=== PATIENT | male | born 1965 | race Caucasian/White ===

== ENCOUNTER 2017-01-15 09:45 | Emergency (ER) | payer BC ==
--- NOTE | 2017-01-15 10:42 | EDM.PDOC ---
ED HPI GENERAL MEDICAL PROBLEM - General Chief Complaint: Syncope Stated Complaint: [facility] Time Seen by Provider: 01/15/17 10:26 Source of Information: Reports: Patient, Family History Limitations: Reports: No Limitations - History of Present Illness INITIAL COMMENTS - FREE TEXT/NARRATIVE: 51-year-old male presents to the ED after a syncopal event occurred this morning. States he was sitting in the recliner and when he got up he felt very dizzy and decided to sit back down in the recliner for a few more minutes. He had to get up to go and get one of his medications and therefore he did get up and walk to the kitchen. Once again he felt very dim vision and like he might pass out. He therefore sat down on one of the kitchen chairs. The next thing he knows his is helping him up from the floor. Patient fell to the floor from the chair and suffered multiple lacerations to his face shoulder area. His estimates that he was unresponsive for about 15-20 seconds. He feels pretty well back to normal at this time. 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 Gradual deterioration in cardiac function recently with ejection fraction as low as 12% resulted in placement of a left ventricular assist device on December 29 at [facility]. And has just gotten home 3 days ago. He is chronically anticoagulated with Coumadin with an INR range to be between 2.5 and 3.5. Was checked on Monday and apparently was 2.9. At present he feels back to normal when he is lying still. Blood pressure is 82/62. Heart rate is 84. He does have a defibrillator left upper anterior chest implanted several years ago. Recovering from reduce recent open thoracotomy for placement of the left ventricle reassessment device. Feels he did not hurt anything else other than a slight bruise to his right wrist area when he fell. Onset: Today Onset Date: 01/15/17 Onset Time: 08:30 Duration: Minutes: Location: Reports: Head, Face Quality: Reports: Burning, Other (Superficial lacerations to his face are not all that bothersome or painful.) Severity: Mild Improves with: Reports: None Worsens with: Reports: Other (Condition worsens with standing I lightheaded and dizzy.) Context: Reports: Activity (Adjusted up) Associated Symptoms: Reports: Syncope, Weakness. 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: Other (see below) - Related Data Allergies Allergy/AdvReac Type Severity Reaction Status Date / Time No Known Allergies Allergy Verified 01/15/17 10:07 Home Meds: Home Meds Folic Acid 1 mg PO DAILY 08/11/14 [History] predniSONE [Prednisone] 5 mg PO DAILY 08/11/14 [History] sulfaSALAzine 1,000 mg PO BID 08/11/14 [History] Amiodarone [Cordarone] 200 mg PO DAILY 06/07/16 [History] Carvedilol 3.125 mg PO BID 06/07/16 [History] Methotrexate Sodium/PF [Methotrexate 50 mg/2 ml Vial] 0.5 ml PO ASDIRECTED 06/07 [History] Aspirin [Ecotrin] 325 mg PO DAILY 01/15/17 [History] Iron,Carbonyl/Ascorbic Acid [Vitron-C Tablet] 1 tab PO DAILY 01/15/17 [History] Multivitamin [Multi-Day Vitamins] 1 tab PO DAILY 01/15/17 [History] Pantoprazole Sodium [Protonix] 40 mg PO DAILY 01/15/17 [History] Torsemide [Demadex] 20 mg PO DAILY 01/15/17 [History] Warfarin [Coumadin] 1 dose PO ASDIRECTED 01/15/17 [History] Past Medical History Cardiovascular History: Reports: Cardiomyopathy Other Cardiovascular History: 15-20% functioning heart Genitourinary History: Reports: Chronic Renal Insuffiency Musculoskeletal History: Reports: RA (Is on prednisone low dose and methotrexate for this.) - Past Surgical History Cardiovascular Surgical History: Reports: AICD, Other (See Below) Other Cardiovascular Surgeries/Procedures: LVAD Social & Family History - Tobacco Use Smoking Status *Q: Former Smoker Years of Tobacco use: 21 Packs/Tins Daily: 0.8 Used Tobacco, but Quit: Yes Month Tobacco Last Used: jan Second Hand Smoke Exposure: No - Caffeine Use Caffeine Use: Reports: None - Alcohol Use Days Per Week of Alcohol Use: 0 - Recreational Drug Use Recreational Drug Use: No - Living Situation & Occupation Living situation: Reports: , with Spouse, with Family Occupation: Employed ED ROS GENERAL - Review of Systems Review Of Systems: See Below Constitutional: Reports: Malaise, Weakness, Fatigue, Decreased Appetite, Weight Loss. Denies: Fever, Chills HEENT: Reports: No Symptoms Respiratory: Reports: Shortness of Breath. Denies: Wheezing, Pleuritic Chest Pain, Cough, Sputum Cardiovascular: Reports: Chest Pain, Blood Pressure Problem (Recovering from open heart surgery. Has a midline sternotomy incision.), Dyspnea on Exertion, Edema, Lightheadedness (Mild both lower extremities), Syncope. Denies: Claudication, Orthopnea, Palpitations, PND Endocrine: Reports: Fatigue (See history of present illness recovering from open heart surgery and placement a left ventricular assist device.) GI/Abdominal: Reports: No Symptoms : Reports: No Symptoms Musculoskeletal: Reports: Other (Chest pain from recent open heart surgical procedure December 29) Skin: Reports: No Symptoms Neurological: Reports: Dizziness, Syncope. Denies: Headache, Numbness, Tingling Psychiatric: Reports: No Symptoms Hematologic/Lymphatic: Reports: No Symptoms Immunologic: Reports: No Symptoms - Physical Exam Exam: See Below Exam Limited By: No Limitations General Appearance: Alert, WD/WN, Other Eye Exam: Bilateral Eye: Normal Inspection Throat/Mouth: Normal Inspection, Normal Lips, Normal Teeth, Normal Oropharynx Head Exam: Atraumatic, Normocephalic Neck: Normal Inspection, Supple, Non-Tender, Full Range of Motion, Other (No jugular venous pulsation.). No: Lymphadenopathy (L), Lymphadenopathy (R) Respiratory/Chest: No Respiratory Distress, No Accessory Muscle Use, Rales (Few rales right lung base.), Other (Midline sternotomy incision is healing well. Abdominal wall incision appears to be healing well as well. There is a defibrillator) GI/Abdominal: Normal Bowel Sounds, Soft, Non-Tender, No Organomegaly (Surgical wound upper abdomen healing satisfactorily.), No Distention, Other Neuro Exam (Abbreviated): Alert, Oriented, CN II-XII Intact, Normal Cognition, Normal Gait (Walks quite slowly.) Back Exam: Normal Inspection, Full Range of Motion Extremities: Normal Inspection, Normal Range of Motion, Non-Tender, Normal Capillary Refill Psychiatric: Normal Affect, Normal Mood Skin Exam: Warm, Dry, Intact, Normal Color, No Rash Course - Vital Signs Last Recorded V/S: Last Vital Signs Temp 36.3 C 01/15/17 09:56 Pulse 82 01/15/17 12:50 Resp 12 01/15/17 12:50 BP 78/54 L 01/15/17 12:50 Pulse Ox 98 01/15/17 12:50 Orthostatic Blood Pressure [ 82/69 Standing] Orthostatic Blood Pressure [ 85/67 Sitting] Orthostatic Blood Pressure [ 85/65 Supine] - Orders/Labs/Meds Labs: Laboratory Tests 01/15/17 01/15/17 01/15/17 Range/Units 10:45 10:45 10:45 WBC 9.30 H (4.23-9.07) K/mm3 RBC 3.33 L (4.63-6.08) M/mm3 Hgb 10.8 L (13.7-17.5) gm/L Hct 33.2 L (40.1-51.0) % MCV 99.7 H (79.0-92.2) fl MCH 32.4 H (25.7-32.2) pg MCHC 32.5 (32.2-35.5) g/dl RDW Std Deviation 53.4 H (35.1-43.9) fL Plt Count 412 H (163-337) K/mm3 MPV 9.5 (9.4-12.3) fl Neutrophils % (Manual) 75 H (40-60) % Band Neutrophils % 1 (0-10) % Lymphocytes % (Manual) 14 L (20-40) % Atypical Lymphs % 0 % Monocytes % (Manual) 6 (2-10) % Eosinophils % (Manual) 4 (0.8-7.0) % Basophils % (Manual) 0 L (0.2-1.2) Platelet Estimate Adequate Poikilocytosis 1+ slight Anisocytosis 1+ slight RBC Morph Comment Not Reportable PT 26.0 H (8.0-13.0) SECONDS INR 2.26 Sodium 136 (136-145) mEq/L Potassium 3.9 (3.5-5.1) mEq/L Chloride 98 (98-107) mEq/L Carbon Dioxide 35 H (21-32) mEq/L Anion Gap 6.9 (5-15) BUN 25 H (7-18) mg/dL Creatinine 1.7 H (0.7-1.3) mg/dL Est Cr Clr Drug Dosing 53.48 mL/min Estimated GFR (MDRD) 43 (>60) mL/min BUN/Creatinine Ratio 14.7 (14-18) Glucose 123 H (74-106) mg/dL Calcium 9.4 (8.5-10.1) mg/dL Total Bilirubin 1.0 (0.2-1.0) mg/dL AST 40 H (15-37) U/L ALT 41 (16-63) U/L Alkaline Phosphatase 126 H (46-116) U/L Qem-A-Tqiqpuamqnw Pept 1981 H (0-125) pg/mL Total Protein 8.0 (6.4-8.2) g/dl Albumin 3.5 (3.4-5.0) g/dl Globulin 4.5 gm/dL Albumin/Globulin Ratio 0.8 L (1-2) Meds: Medications Discontinued Medications Generic Name Dose Route Start Last Admin Trade Name Freq PRN Reason Stop Dose Admin Sodium Chloride 1,000 mls @ 150 mls/hr 01/15/17 10:45 01/15/17 10:57 Normal Saline IV 150 mls/hr ASDIRECTED VICKY Administration - Radiology Interpretation Free Text/Narrative:: 51-year-old male with known severe viral cardiomyopathy for many years underwent recent left ventricular assist device placement on December 29 in [facility]. He just got back home 3 days ago. This morning he was sitting in his easy chair and was getting up to go and get another medication when he started to feel quite dizzy lightheaded and sat back down in the chair for a few more minutes. He got up the second time admitted as far as the kitchen before his vision becoming quite DM and he felt like he might pass out. He sat down on a kitchen chair. Unfortunately he did suffer a syncopal event and ended up on the floor. This resulted in multiple superficial facial lacerations particular his chin and left temporal scalp. reports she was right there and witnessed the fall and states he fell quite slowly. She estimates she was unresponsive for 10-15 seconds. When he regained consciousness he could speak normally. There was no seizure activity. His medications of course of been recently changed due to left ventricular assist device. He reports yesterday he did not take as much fluids as normal and may have fallen a bit behind on his fluid status. BP on arrival was 76/60. Plan routine labs to see if he is still anemic. Assess fluid status. I will start a peripheral IV and give him 150 mils of normal saline see if we can bolus his blood pressure a bit. He has superficial lacerations to his face none that require suture repair. His tetanus toxoid is up-to-date about 2 years ago. He appears to have not suffered any other injuries. - Re-Assessments/Exams Free Text/Narrative Re-Assessment/Exam: 01/15/17 12:16 evaluation in the emergency room today after a syncopal event occurred at home this morning. This occurred because blood pressure is running very low on average 72-75. Told investigations carried out revealed an improvement in heart function in terms that BNP is down to 1981. It was over 3000 when you were in [facility]. Unfortunately the INR today is a little lower than we would like to see at 2.26. Therefore they suggest increasing your Coumadin to 4 mg once daily for the next 3 days and have a PT/INR rechecked on Monday, January 18. They suggest placing your carvedilol 3.125 mg dose on hold tonight and see how you feel tomorrow. If you're still feeling dizzy you are to give them a call before taking further doses of this medication ,and they will likely stop this medication at least temporarily to allow your blood pressure to come up a bit. This of course is in an effort to prevent a significant fall with injury to head or hip. All other medications are to be continued as before Departure - Departure Time of Disposition: 12:21 Disposition: Home, Self-Care 01 Condition: Fair Clinical Impression: Syncope due to orthostatic hypotension, Left ventricular assist device present , Subtherapeutic anticoagulation Hypotension Qualifiers: Hypotension type: other hypotension type Qualified Code(s): I95.89 - Other hypotension - Discharge Information Instructions: Hypotension, [id number], Syncope, [id number] Referrals: Velma Hawkins DO [Primary Care Provider] - Forms: ED Department Discharge Additional Instructions: Evaluation in the emergency room today in regards to syncopal event that occurred this morning at home resulting in a fall to the floor and multiple superficial lacerations to the face CT of the head was performed to make sure that there was no intracranial bleeding as you're on Coumadin and none was found. CT of the head is also the lacerations are fairly superficial and nothing required suture repair. Daily cleanse the wounds with soap and water and apply topical antibiotic such as bacitracin or Polysporin until they are healed. The reason for the syncopal event is due to low blood pressure. Normal blood pressure when on a left ventricular assist device is often between 70 and 95. Your blood pressure typically on the top number is been running between 72 and 77 in the ED. There is no improvement in your BNP as it was over 3300 when you were in [facility] it's down to 1981 crowding and kidney function are maintained. PTT today is 2.26 and should be higher usually between 2.5 and 3.5. Therefore recommendation is to increase her Coumadin to 4 mg daily until Monday, January 18 when it should be repeated. Suggestion of the clinic is also to twice sure carbuterol 3.125 mg tablet on hold tonight and see how you feel tomorrow morning. If you are feeling better and blood pressure is improved and you could take her dose. If you're still feeling dizzy or lightheaded or blood pressure remains in the low 70s you are to call them before taking any further doses of this medication. They may discontinue it for a short period of time. All other medications are to remain the same.
[2017-01-15] MEDS ORDERED: Sodium Chloride 0.9% 1,000 ML IV SCH (10:45)
--- NOTE | 2017-01-15 11:55 | CT ---
Head CT Technique: Multiple axial sections through the brain were obtained. Intravenous contrast was not utilized. Comparison: No previous intracranial imaging. Findings: Ventricles along with basal cisterns and sulci over the convexities are mildly prominent. No abnormal parenchymal densities are seen. No evidence of intracranial hemorrhage. No midline shift or mass effect is seen. Bone window settings were reviewed which shows no acute calvarial abnormality. Visualized sinuses shows nothing acute. Impression: 1. Minimal senescent change. 2. No acute intracranial abnormality is identified on noncontrast head CT exam. Diagnostic code #2
[2017-01-15 12:53] VITALS: BP 78/54
--- NOTE | 2017-01-15 17:29 | CR ---
Chest: Frontal view of the chest was obtained. Comparison: Previous chest x-ray of 07/23/16. Heart is enlarged. Left ventricular assist device is seen as an interval change from prior exam. AICD is noted. Previous sternotomy is noted. Lungs are clear. Bony structures are grossly intact. Impression: 1. Left ventricular assist device is seen as an interval change from prior study. Stable AICD noted. 2. Cardiomegaly. 3. Nothing acute is otherwise seen on portable chest x-ray. Diagnostic code #3
== END 2017-01-15 12:55 | disposition home or self-care (01) ==
LOC: JD.ED 09:45 → SUPCPDRO 09:45 → JD.ED 12:55
DX: I95.1 Orthostatic hypotension (principal); R79.1 Abnormal coagulation profile; I42.9 Cardiomyopathy, unspecified; N18.9 Chronic kidney disease, unspecified; Z95.811 Presence of heart assist device; Z79.899 Other long term (current) drug therapy; Z79.01 Long term (current) use of anticoagulants; Z79.82 Long term (current) use of aspirin; Z87.891 Personal history of nicotine dependence
CPT/HCPCS: 36415; 70450; 71010; 80053; 83880; 85025; 85610; 96360; 99285; J7040; 99284

== ENCOUNTER 2017-05-06 10:40 | Emergency (ER) | payer BC ==
--- NOTE | 2017-05-06 11:18 | EDM.PDOC ---
ED HPI GENERAL MEDICAL PROBLEM - General Chief Complaint: Head Injury Stated Complaint: FELL YESTERDAY/HEAD INJURY Time Seen by Provider: 05/06/17 10:51 Source of Information: Reports: Patient, RN Notes Reviewed History Limitations: Reports: No Limitations - History of Present Illness INITIAL COMMENTS - FREE TEXT/NARRATIVE: 51 year old male presents to the ED for evaluation after a fall last evening around 2 or 3 am. He was walking to the bathroom and felt dizzy and lightheaded. He started to lower himself to the floor but says he "blacked out" before sitting down. This caused him to fall. He estimates his LOC was a few seconds. He is unsure what he hit his head on. He has swelling and abrasion to the left forehead. He denies headache, vision changes, weakness in extremities, confusion, loss of balance. He has an Lvad and often feels lightheaded. He knows to sit down and rest when he feels this way. He is on coumadin. He had an INR checked yesterday, which was 3.7. He called his LVAD team at [facility] and they decreased his coumadin x1 dose yesterday. He took 4mg instead of his usual 5mg. He also had a hemoglobin yesterday and says it was 13. He denies fever, chest pain, shortness of breath, cough, nausea, vomiting, diarrhea, abdominal pain. No recent illness. He denies neck pain or back pain. He has left elbow pain. He is unable to fully extend his elbow. He has pain to the medial and lateral aspect of the elbow. No numbness or tingling. No shoulder, humerus, forearm, wrist or hand pain. Left Elbow Pain Score (Numeric/FACES): 7 - Related Data Allergies Allergy/AdvReac Type Severity Reaction Status Date / Time No Known Allergies Allergy Verified 05/06/17 10:54 Home Meds: Home Meds Folic Acid 1 mg PO DAILY 08/11/14 [History] predniSONE [Prednisone] 5 mg PO DAILY 08/11/14 [History] sulfaSALAzine 1,000 mg PO BID 08/11/14 [History] Amiodarone [Cordarone] 200 mg PO DAILY 06/07/16 [History] Carvedilol 3.125 mg PO BID 06/07/16 [History] Methotrexate Sodium/PF [Methotrexate 50 mg/2 ml Vial] 0.05 ml PO WEEKLY [History] Aspirin [Ecotrin] 325 mg PO DAILY 01/15/17 [History] Iron,Carbonyl/Ascorbic Acid [Vitron-C Tablet] 1 tab PO DAILY 01/15/17 [History] Multivitamin [Multi-Day Vitamins] 1 tab PO DAILY 01/15/17 [History] Pantoprazole Sodium [Protonix] 40 mg PO DAILY 01/15/17 [History] Torsemide [Demadex] 20 mg PO DAILY 01/15/17 [History] Warfarin [Coumadin] 1 dose PO ASDIRECTED 01/15/17 [History] Past Medical History Cardiovascular History: Reports: Cardiomyopathy Other Cardiovascular History: 15-20% functioning heart Genitourinary History: Reports: Chronic Renal Insuffiency Musculoskeletal History: Reports: RA - Past Surgical History Cardiovascular Surgical History: Reports: AICD, Other (See Below) Other Cardiovascular Surgeries/Procedures: LVAD Social & Family History - Tobacco Use Smoking Status *Q: Never Smoker Years of Tobacco use: 21 Packs/Tins Daily: 0.8 Used Tobacco, but Quit: Yes Month Tobacco Last Used: jan Second Hand Smoke Exposure: No - Caffeine Use Caffeine Use: Reports: None - Alcohol Use Days Per Week of Alcohol Use: 0 - Recreational Drug Use Recreational Drug Use: No - Living Situation & Occupation Living situation: Reports: , with Spouse, with Family Occupation: Employed ED ROS GENERAL - Review of Systems Review Of Systems: See Below Constitutional: Reports: No Symptoms. Denies: Fever, Chills, Diaphoresis HEENT: Reports: No Symptoms. Denies: Ear Pain, Vertigo, Vision Change Respiratory: Reports: No Symptoms. Denies: Cough Cardiovascular: Reports: Lightheadedness, Syncope. Denies: Chest Pain GI/Abdominal: Reports: No Symptoms. Denies: Abdominal Pain, Nausea, Vomiting Musculoskeletal: Reports: Arm Pain (left elbow ), Joint Pain (left elbow). Denies: Neck Pain, Shoulder Pain, Back Pain, Hand Pain, Joint Swelling Skin: Reports: Wound (abrasion forehead) Neurological: Reports: Syncope. Denies: Confusion, Dizziness, Headache, Numbness, Seizure, Tingling, Trouble Speaking, Difficulty Walking, Weakness ED EXAM, HEAD INJURY - Physical Exam Exam: See Below Exam Limited By: No Limitations General Appearance: Alert, WD/WN, No Apparent Distress Head: Normocephalic, Scalp Hematoma (left forehead ), Facial Abrasions ( superficial ). No: Scalp Lacerations, Scalp Swelling, Scalp Abrasions, Scalp Ecchymosis, Osorio's Sign, Facial Ecchymosis, Facial Lacerations, Facial Tenderness, Raccoon Eyes Nexus Criteria: No: Posterior, Midline Cervical Tenderness, Evidence of Intoxication, Altered Level of Consciousness, Focal Neurological Deficit, Painful Distraction Injuries Eyes: Bilateral Eye: EOMI, Normal Inspection, PERRL Ears: Normal External Exam, Normal TMs Throat/Mouth: Normal Inspection, Normal Oropharynx Neck: Non-Tender, Full Range of Motion, Normal Alignment, Normal Inspection. No : Painful Range of Motion, Paraspinous Muscle Tender, Spinous Processes Tender, Tender Midline Respiratory: No Respiratory Distress, Lungs Clear, No Accessory Muscle Use, Chest Non-Tender, Other (difficult to auscultate left lungs due to lvad. ) Cardiovascular: Normal Peripheral Pulses, Regular Rate, Rhythm, No Murmur GI/Abdominal Exam: Normal Bowel Sounds, Soft, Non-Tender, No Distention Back Exam: Normal Inspection, Full Range of Motion. No: Paraspinal Tenderness, Vertebral Tenderness Extremities: Other (Left elbow is tender to palpation. No effusion. Unable to fully flex or extend the elbow. No obvious deformity. No pain, deformity, swelling to left shoulder, humerus, forearm, wrist or hand. Neurovascular status intact. ) Neurologic: No Motor/Sensory Deficits, Alert, Normal Mood/Affect Course - Vital Signs Last Recorded V/S: Last Vital Signs Temp 97.3 F 05/06/17 10:51 Pulse Resp 18 05/06/17 10:51 BP Pulse Ox - Orders/Labs/Meds Orders: Active Orders 24 hr Category Date Time Status Elbow Min 3V Lt [CR] Stat Exams 05/06/17 11:17 Taken Head wo Cont [CT] Stat Exams 05/06/17 11:17 Taken Labs: Laboratory Tests 05/06/17 05/06/17 Range/Units 11:45 11:45 WBC 7.63 (4.23-9.07) K/mm3 RBC 4.20 L (4.63-6.08) M/mm3 Hgb 13.1 L (13.7-17.5) gm/L Hct 40.2 (40.1-51.0) % MCV 95.7 H (79.0-92.2) fl MCH 31.2 (25.7-32.2) pg MCHC 32.6 (32.2-35.5) g/dl RDW Std Deviation 48.3 H (35.1-43.9) fL Plt Count 182 (163-337) K/mm3 MPV 10.7 (9.4-12.3) fl PT 55.9 H* (8.0-13.0) SECONDS INR 4.65 - Re-Assessments/Exams Free Text/Narrative Re-Assessment/Exam: 05/06/17 12:39 CBC reveals Hgb of 13.1. This is stable from yesterday. INR is 4.65. It was 3.7 yesterday according to the patient. Discussed with Dr. Abbasi who recommends we hold coumadin today, then 1/2 dose tomorrow, then recheck Monday. Left elbow x-ray is negative for bony abnormality. Radiologist interpretation pending. CT head read by [facility], no acute intracranial abnormality. Patient will be discharged home. Educated on return precautions. Discharge instructions as documented. Departure - Departure Time of Disposition: 12:40 Disposition: Home, Self-Care 01 Condition: Good Clinical Impression: Elevated INR Syncope Qualifiers: Encounter type: initial encounter Head injury Qualifiers: Encounter type: initial encounter Qualified Code(s): S09.90XA - Unspecified injury of head, initial encounter - Discharge Information Referrals: Velma Hawkins DO [Primary Care Provider] - Forms: ED Department Discharge Additional Instructions: Hold coumadin today, take 1/2 of your regular dose tomorrow, then recheck INR Monday and call your Lvad team on Monday. Return to ER with new or worsening symptoms. Minor Head Injury We have found no evidence to indicate that your head injury was serious. However , new symptoms and unexpected complications can develop hours or even days after the injury. The 24 hours are the most crucial and you should remain with a reliable green building materials designer at least during this period If any of the following signs develop, call your doctor or come back to the ED: Drowsiness or increasing difficulty in awakening patient Nausea and vomiting Convulsions or fits Bleeding or watery drainage from the nose or ear Severe headaches Weakness or loss of feeling in the arms or legs Worsening or loss of balance Confusion or strange behavior One pupil (black part of eye) much larger than the other: peculiar movement of the eyes, double vision, or other visual disturbances A very slow or very rapid pulse, or unusual breathing pattern You may eat or drink as usual if you desire. However, you should not drink alcoholic beverages. Do not take any sedatives or any pain relieves stronger than Tylenol ( acetaminophen) at least for the first 24 hours. Do not use aspirin containing medicines or anti-inflammatories such as advil, motrin, ibuprofen, aleve, naproxyn. . - My Orders Last 24 Hours: My Active Orders 05/06/17 11:17 Elbow Min 3V Lt [CR] Stat Head wo Cont [CT] Stat - Assessment/Plan Last 24 Hours: My Active Orders 05/06/17 11:17 Elbow Min 3V Lt [CR] Stat Head wo Cont [CT] Stat
--- NOTE | 2017-05-08 07:59 | CR ---
Left elbow: Four views of the left elbow were obtained. Comparison: No prior elbow study. Joint effusion is identified. Joint spaces are preserved. No acute fracture or other bony abnormality is identified. Impression: 1. Joint effusion. No acute bony abnormality is appreciated. If patient continues to be symptomatic, recommend repeat study in 10-14 days to further evaluate. Diagnostic code #3
--- NOTE | 2017-05-08 10:15 | CT ---
Head CT Technique: Multiple axial sections through the brain were obtained. Intravenous contrast was not utilized. Comparison: Prior head CT exam of 01/15/17. Findings: Ventricles along with basal cisterns and sulci over the convexities are mildly prominent. No abnormal parenchymal densities are seen. No evidence of intracranial hemorrhage. No midline shift or mass effect is seen. Soft tissue hematoma seen within the left frontal scalp. Bone window settings were reviewed which show the visualized sinuses to appear clear. No acute calvarial abnormality is identified. Impression: 1. Soft tissue hematoma within the left frontal scalp. 2. Mild generalized atrophy is seen which is stable from prior head CT. 3. No acute intracranial abnormality is appreciated. Diagnostic code #2 I agree with preliminary report issued by [facility] ([facility] report finalized on 05/06/17, 12:47 PM Central Time)
== END 2017-05-06 12:47 | disposition home or self-care (01) ==
LOC: JD.ED 10:40
DX: R55 Syncope and collapse (principal); S06.0X1A Concussion with loss of consciousness of 30 minutes or less, initial encounter; S00.03XA Contusion of scalp, initial encounter; S00.81XA Abrasion of other part of head, initial encounter; N18.9 Chronic kidney disease, unspecified; Z79.899 Other long term (current) drug therapy; Z79.01 Long term (current) use of anticoagulants; Z79.82 Long term (current) use of aspirin; W01.10XA Fall on same level from slipping, tripping and stumbling with subsequent striking against unspecified object, initial encounter
CPT/HCPCS: 36415; 70450; 70450-26; 73080-26-LT; 73080-LT; 85027; 85610; 99283; 99284-25

== ENCOUNTER 2018-11-06 10:21 | Emergency (ER) | payer BC ==
[2018-11-06 10:42] VITALS: BP 115/93
--- NOTE | 2018-11-06 11:19 | EDM.PDOC ---
ED HPI GENERAL MEDICAL PROBLEM - General Chief Complaint: Laceration Stated Complaint: NOSE LAC Time Seen by Provider: 11/06/18 10:33 Source of Information: Reports: Patient History Limitations: Reports: No Limitations - History of Present Illness INITIAL COMMENTS - FREE TEXT/NARRATIVE: 53-year-old male presents to emergency room chief complaints of upper nose laceration. He reports last evening that he bring into a door frame striking his nose. Patient does admit to taking aspirin and Coumadin. He reports that he' s had intermittent bleeding last evening and today he started bleeding again. He denies any neck or back pain denies any headache. Onset Date: 11/05/18 Onset Time: 02:10 Duration: Getting Worse, Intermittent Location: Reports: Face Worsens with: Reports: None Associated Symptoms: Reports: Shortness of Breath. Denies: Confusion, Cough, Fever/Chills, Nausea/Vomiting, Weakness - Related Data Allergies Allergy/AdvReac Type Severity Reaction Status Date / Time No Known Allergies Allergy Verified 11/06/18 10:28 Home Meds: Home Meds Folic Acid 1 mg PO DAILY 08/11/14 [History] sulfaSALAzine 1,000 mg PO BID 08/11/14 [History] Amiodarone [Cordarone] 200 mg PO DAILY 06/07/16 [History] Carvedilol 6.25 mg PO BID 06/07/16 [History] Methotrexate Sodium/PF [Methotrexate 50 mg/2 ml Vial] 0.04 ml PO WEEKLY [History] Aspirin [Ecotrin] 325 mg PO DAILY 01/15/17 [History] Iron,Carbonyl/Ascorbic Acid [Vitron-C Tablet] 1 tab PO DAILY 01/15/17 [History] Multivitamin [Multi-Day Vitamins] 1 tab PO DAILY 01/15/17 [History] Pantoprazole Sodium [Protonix] 40 mg PO DAILY 01/15/17 [History] Torsemide [Demadex] 20 mg PO DAILY 01/15/17 [History] Warfarin [Coumadin] 1 dose PO ASDIRECTED 01/15/17 [History] Past Medical History Cardiovascular History: Reports: Cardiomyopathy, Other (See Below) Other Cardiovascular History: 15-20% functioning heart, viral illness causing heart damage. Genitourinary History: Reports: Chronic Renal Insuffiency Musculoskeletal History: Reports: RA - Infectious Disease History Infectious Disease History: Reports: Chicken Pox, Measles - Past Surgical History Cardiovascular Surgical History: Reports: AICD, Other (See Below) Other Cardiovascular Surgeries/Procedures: LVAD Social & Family History - Tobacco Use Smoking Status *Q: Former Smoker Years of Tobacco use: 25 Packs/Tins Daily: 0.5 Used Tobacco, but Quit: No Month/Year Tobacco Last Used: November 2016 - Caffeine Use Caffeine Use: Reports: None - Recreational Drug Use Recreational Drug Use: No - Living Situation & Occupation Living situation: Reports: , with Spouse, with Family Occupation: Employed ED ROS GENERAL - Review of Systems Review Of Systems: See Below Constitutional: Denies: Fever, Chills HEENT: Reports: Other (upper nose laceration/abrasion) Respiratory: Denies: Shortness of Breath Cardiovascular: Denies: Chest Pain Endocrine: Denies: Fatigue GI/Abdominal: Reports: No Symptoms : Reports: No Symptoms Musculoskeletal: Denies: Neck Pain Skin: Reports: Other (upper nasal bridge superficial laceratioin) Neurological: Denies: Confusion, Dizziness, Headache, Change in Speech Psychiatric: Reports: No Symptoms Hematologic/Lymphatic: Reports: No Symptoms Immunologic: Reports: No Symptoms ED EXAM, SKIN/RASH Exam: See Below Exam Limited By: No Limitations General Appearance: Alert, WD/WN, No Apparent Distress Eye Exam: Bilateral Eye: EOMI, PERRL Nose: Normal Inspection, Normal Mucosa, Other (nasal bridge superficial laceration with skin avulsion noted, no erythema or swelling noted, moderate bleeding from site. ). No: Nasal Drainage, Clear Rhinorrhea Head: Atraumatic, Normocephalic Neck: Normal Inspection, Supple, Non-Tender, Full Range of Motion Neurological: Alert, Oriented, CN II-XII Intact, Normal Cognition, Normal Gait Psychiatric: Normal Affect, Normal Mood Skin: Warm, Dry, Intact, Normal Color, No Rash Course - Vital Signs Last Recorded V/S: Last Vital Signs Temp 98.6 F 11/06/18 10:25 Pulse 76 11/06/18 10:25 Resp 16 11/06/18 10:25 BP 115/93 H 11/06/18 10:25 Pulse Ox 98 11/06/18 10:25 - Re-Assessments/Exams Free Text/Narrative Re-Assessment/Exam: 11/06/18 11:44 53-year-old male presents to emergency room chief complaints of nasal bridge laceration and bleeding. Patient does take Coumadin for a Lvac. He applied pressure last evening and the bleeding stopped this morning he irritated the area and it started to bleed again. I did apply quick clot to and [place] pressure and hemostasis obtained. I will discharge home with instructions to get dressing wet and remove it in the am. Instructed patient to follow-up with his PCP. Instructed patient to return to emergency room for any new or acute symptoms. Patient verbalized understanding this plan for discharge. Departure - Departure Time of Disposition: 11:48 Disposition: Home, Self-Care 01 Condition: Good Clinical Impression: Nasal laceration Qualifiers: Encounter type: initial encounter Qualified Code(s): S01.21XA - Laceration without foreign body of nose, initial encounter Avulsion of skin of face Qualifiers: Encounter type: initial encounter Qualified Code(s): S01.80XA - Unspecified open wound of other part of head, initial encounter - Discharge Information Instructions: Facial Laceration, Wound Care, Adult, Stitches, [place], or Adhesive Wound Closure Referrals: Onesimo Arceo MD [Primary Care Provider] - Additional Instructions: You have been diagnosis with nasal superficial laceration and abrasion. In the morning get the dressing wet and remove it. Follow up PCP. Return to ER for any new or acute worsening symptoms.
== END 2018-11-06 11:55 | disposition home or self-care (01) ==
LOC: JD.ED 10:21
DX: S01.21XA Laceration without foreign body of nose, initial encounter (principal); Z87.891 Personal history of nicotine dependence; N18.9 Chronic kidney disease, unspecified; Z79.82 Long term (current) use of aspirin; Z79.899 Other long term (current) drug therapy; W22.8XXA Striking against or struck by other objects, initial encounter
CPT/HCPCS: 99282

== ENCOUNTER 2018-11-12 13:18 | Emergency (ER) | payer BC ==
[2018-11-12 13:36] VITALS: BP 95/80
--- NOTE | 2018-11-12 14:21 | EDM.PDOC ---
ED HPI GENERAL MEDICAL PROBLEM - General Chief Complaint: Skin Complaint Stated Complaint: POSS INFECTION TO A OPEN WOUND Time Seen by Provider: 11/12/18 13:47 Source of Information: Reports: Patient History Limitations: Reports: No Limitations - Related Data Allergies Allergy/AdvReac Type Severity Reaction Status Date / Time No Known Allergies Allergy Verified 11/12/18 13:34 Home Meds: Home Meds Folic Acid 1 mg PO DAILY 08/11/14 [History] sulfaSALAzine 1,000 mg PO BID 08/11/14 [History] Amiodarone [Cordarone] 200 mg PO DAILY 06/07/16 [History] Carvedilol 6.25 mg PO BID 06/07/16 [History] Methotrexate Sodium/PF [Methotrexate 50 mg/2 ml Vial] 0.04 ml PO WEEKLY [History] Aspirin [Ecotrin] 325 mg PO DAILY 01/15/17 [History] Iron,Carbonyl/Ascorbic Acid [Vitron-C Tablet] 1 tab PO DAILY 01/15/17 [History] Multivitamin [Multi-Day Vitamins] 1 tab PO DAILY 01/15/17 [History] Pantoprazole Sodium [Protonix] 40 mg PO DAILY 01/15/17 [History] Torsemide [Demadex] 20 mg PO DAILY 01/15/17 [History] Warfarin [Coumadin] 1 dose PO ASDIRECTED 01/15/17 [History] Doxycycline [Vibramycin] 100 mg PO BID #20 cap 11/12/18 [Rx] Past Medical History Cardiovascular History: Reports: Cardiomyopathy, Other (See Below) Other Cardiovascular History: 15-20% functioning heart, viral illness causing heart damage. Genitourinary History: Reports: Chronic Renal Insuffiency Musculoskeletal History: Reports: RA - Infectious Disease History Infectious Disease History: Reports: Chicken Pox, Measles - Past Surgical History Cardiovascular Surgical History: Reports: AICD, Other (See Below) Other Cardiovascular Surgeries/Procedures: LVAD Social & Family History - Tobacco Use Smoking Status *Q: Never Smoker - Caffeine Use Caffeine Use: Reports: None - Recreational Drug Use Recreational Drug Use: No - Living Situation & Occupation Living situation: Reports: , with Spouse, with Family Occupation: Employed ED ROS GENERAL - Review of Systems Review Of Systems: ROS reveals no pertinent complaints other than HPI. ED EXAM, SKIN/RASH Exam: See Below Exam Limited By: No Limitations General Appearance: Alert, WD/WN, No Apparent Distress Ears: Hearing Grossly Normal Nose: Normal Inspection Throat/Mouth: Normal Voice, No Airway Compromise Neck: Normal Inspection, Supple Respiratory/Chest: No Respiratory Distress, Lungs Clear, Normal Breath Sounds, No Accessory Muscle Use Cardiovascular: Normal Peripheral Pulses, Regular Rate, Rhythm Peripheral Pulses: 2+: Radial (L) GI/Abdominal: Normal Bowel Sounds, Soft, Non-Tender, No Organomegaly, No Distention, Other (LVAD port to abdomen with localized area of redness. Small pimple like lesion to the medial border of the OS. ) Course - Vital Signs Last Recorded V/S: Last Vital Signs Temp 97.4 F 11/12/18 13:32 Pulse Resp 18 11/12/18 13:32 BP 95/80 11/12/18 13:32 Pulse Ox 98 11/12/18 13:32 - Orders/Labs/Meds Meds: Medications Discontinued Medications Generic Name Dose Route Start Last Admin Trade Name Freq PRN Reason Stop Dose Admin Doxycycline Hyclate 200 mg 11/12/18 15:22 11/12/18 16:11 Vibramycin PO 11/12/18 15:23 200 mg ONETIME ONE Administration - Re-Assessments/Exams Free Text/Narrative Re-Assessment/Exam: 11/12/18 1508 Discussed patient with Felipe ESCAPEMENT MAKER with LVAD team. She has reviewed the picture sent by patient. She requested wound culture, blood cultures 2, and starting the patient on doxycycline. Return precautions were discussed with the patient. They have no further questions or concerns. Discharge instructions as documented. Departure - Departure Time of Disposition: 15:53 Disposition: Home, Self-Care 01 Condition: Good Clinical Impression: LVAD (left ventricular assist device) present Skin abscess Qualifiers: Site of cutaneous abscess: other site Qualified Code(s): L02.818 - Cutaneous abscess of other sites - Discharge Information Prescriptions: Doxycycline [Vibramycin] 100 mg PO BID #20 cap Instructions: Skin Abscess Referrals: Onesimo Arceo MD [Primary Care Provider] - Forms: ED Department Discharge Additional Instructions: As discussed take the doxycycline 1 tab twice a day for the next 10 days. Monitor for any signs of worsening infection including: Swelling, redness, drainage, fever, pain, and/or any additional complaints. If so return back to the ED for reevaluation. Blood cultures and wound cultures have been obtained. You will be notified of change in antibiotic is required. Please remain in contact with LVAD team. Continue dressing changes as normal. With taking antibiotic INR needs to be rechecked in 3 days. In addition the doxycycline can cause photosensitivity so restrict your exposure to the sun.
[2018-11-12] MEDS ORDERED: Doxycycline 100 MG Cap PO ONE (15:22)
== END 2018-11-12 16:17 | disposition home or self-care (01) ==
LOC: JD.ED 13:18
DX: L02.211 Cutaneous abscess of abdominal wall (principal); N18.9 Chronic kidney disease, unspecified; Z79.899 Other long term (current) drug therapy; Z95.5 Presence of coronary angioplasty implant and graft; Z95.811 Presence of heart assist device
CPT/HCPCS: 36415; 87040; 87075; 87076; 87181; 87205; 99283; A9270; 87070

== ENCOUNTER 2019-12-20 06:23 | Emergency (ER) | payer BC ==
[2019-12-20 06:35] VITALS: BP 108/72; PULSE 67
--- NOTE | 2019-12-20 07:18 | EDM.PDOC ---
ED HPI GENERAL MEDICAL PROBLEM - General Chief Complaint: ENT Problem Stated Complaint: NOSE BLEED Time Seen by Provider: 12/20/19 07:13 Source of Information: Reports: Patient History Limitations: Reports: No Limitations - History of Present Illness INITIAL COMMENTS - FREE TEXT/NARRATIVE: 54-year-old male presents to the ED with persistent bleeding from the left naris for greater than 30 hours. Patient is on Coumadin and keep his INR between 2.7 and 3.5 due to having a left ventricular assist device. Bleeding will clot up his nose but it is still persistently oozing. Coming out the other nares and down his throat. He has spit up some clots as well. He has had a nose compression device placed since arrival for 20 minutes. Denies any other bleeding problems. Onset: Sudden Onset Date: 12/19/19 Onset Time: 06:00 Duration: Hour(s):, Constant Location: Reports: Face (Left-sided nosebleed) Quality: Reports: Other Severity: Moderate (No pain) Improves with: Reports: Other (Nasal clamping) Worsens with: Reports: Other Context: Denies: Activity, Exercise (Blowing his nose.), Lifting, Sick Contact, Trauma, Other Associated Symptoms: Denies: No Other Symptoms, Confusion, Chest Pain, Cough, cough w sputum, Diaphoresis, Fever/Chills, Headaches, Loss of Appetite, Malaise Treatments ACETONE BUTTON PASTER: Reports: Other (see below) Other Treatments ACETONE BUTTON PASTER: affrin spray - Related Data Allergies Allergy/AdvReac Type Severity Reaction Status Date / Time No Known Allergies Allergy Verified 12/20/19 19:07 Home Meds: Home Meds Folic Acid 1 mg PO DAILY 08/11/14 [History] sulfaSALAzine 1,000 mg PO BID 08/11/14 [History] Amiodarone [Cordarone] 200 mg PO DAILY 06/07/16 [History] Methotrexate Sodium/PF [Methotrexate 50 mg/2 ml Vial] 0.04 ml PO WEEKLY 06/07/16 [History] Aspirin [Ecotrin] 325 mg PO DAILY 01/15/17 [History] Iron,Carbonyl/Ascorbic Acid [Vitron-C Tablet] 1 tab PO DAILY 01/15/17 [History] Multivitamin [Multi-Day Vitamins] 1 tab PO DAILY 01/15/17 [History] Pantoprazole Sodium [Protonix] 40 mg PO DAILY 01/15/17 [History] Torsemide [Demadex] 20 mg PO DAILY 01/15/17 [History] Warfarin [Coumadin] 1 dose PO ASDIRECTED 01/15/17 [History] Doxycycline [Vibramycin] 100 mg PO BID #20 cap 11/12/18 [Rx] Past Medical History Cardiovascular History: Reports: Cardiomyopathy, Other (See Below) Other Cardiovascular History: 15-20% functioning heart, viral illness causing heart damage. Currently has a left ventricular assist device. Genitourinary History: Reports: Chronic Renal Insuffiency Musculoskeletal History: Reports: RA - Infectious Disease History Infectious Disease History: Reports: Chicken Pox, Measles - Past Surgical History Cardiovascular Surgical History: Reports: AICD, Other (See Below) Other Cardiovascular Surgeries/Procedures: LVAD Social & Family History - Tobacco Use Smoking Status *Q: Former Smoker Used Tobacco, but Quit: Yes Month/Year Tobacco Last Used: 2016 - Caffeine Use Caffeine Use: Reports: Soda Other Caffeine Use: soda occassionally - Recreational Drug Use Recreational Drug Use: No - Living Situation & Occupation Living situation: Reports: , with Spouse, with Family Occupation: Employed ED ROS ENT - Review of Systems Review Of Systems: See Below Constitutional: Reports: Malaise, Weakness, Fatigue, Decreased Appetite. Denies: Fever, Chills HEENT: Reports: Nosebleed (Left nare since yesterday.) Respiratory: Reports: Shortness of Breath Cardiovascular: Reports: Blood Pressure Problem, Dyspnea on Exertion, Lightheadedness. Denies: Chest Pain, Claudication, Edema, Orthopnea (Is to run on the low side.) Endocrine: Reports: No Symptoms GI/Abdominal: Reports: No Symptoms : Reports: Frequency Musculoskeletal: Reports: Back Pain Skin: Reports: Pallor Neurological: Reports: No Symptoms ED EXAM, ENT - Physical Exam Exam: See Below Exam Limited By: No Limitations General Appearance: Alert, WD/WN, No Apparent Distress, Other (Temperature is 36.0 with a heart rate of 67 respiratory is 18 with O2 sats of 97% on room air BP 108/72.) Eye Exam: Bilateral Eye: Normal Inspection (Mild blepharal pallor.) Mouth/Throat: Normal Inspection, Normal Gums, Normal Teeth Head: Atraumatic, Normocephalic Neck: Normal Inspection, Supple, Non-Tender, Full Range of Motion. No: Lymphadenopathy (L), Lymphadenopathy (R) Respiratory/Chest: No Respiratory Distress, Lungs Clear, Normal Breath Sounds Cardiovascular: Other (Absence of any heart sounds due to left ventricular assist device.) Course - Vital Signs Last Recorded V/S: Last Vital Signs Temp 36.0 C L 12/20/19 06:30 Pulse 67 12/20/19 06:30 Resp 18 12/20/19 06:30 BP 108/72 12/20/19 06:30 Pulse Ox 97 12/20/19 06:30 - Radiology Interpretation Free Text/Narrative:: 54-year-old male presents to the ED with persistent left-sided nasal hemorrhage for the last 30 hours. States it will clot up but it will not stop oozing. He is on Coumadin high dosage and keep his INR between 2.7 and 3.5. He has a left ventricular assist device in place. Nosebleed on the left side primarily but has been coming out the right nares as well as down his throat. He just spit up some blood when I entered the room. Examination reveals angry looking mucosa on the right side with no ulcerations. Bleeding was from the left anterior nasal septum on the left side. No blood in the oropharynx or clots at this time. He was treated with silver nitrate application in 3 spots on the left anterior septum. Will review him and the next 10 minutes or so. - Re-Assessments/Exams Free Text/Narrative Re-Assessment/Exam: 12/20/19 07:30 on review there is been no active bleeding or recurrence of bleeding. Inspection of the left nasal septum shows good placement of the silver nitrate. He will come back if he has any further nosebleeds. He will put Polysporin ointment with the aid of a Q-tip into both sides of his nose at bedtime for the next week. He will return to the ED if he has any further nasal bleeding. Departure - Departure Time of Disposition: 07:30 Disposition: Home, Self-Care 01 Condition: Fair Clinical Impression: Anterior epistaxis, Epistaxis - Discharge Information *PRESCRIPTION DRUG MONITORING PROGRAM REVIEWED*: Not Applicable *COPY OF PRESCRIPTION DRUG MONITORING REPORT IN PATIENT ANGUS: Not Applicable Instructions: Nosebleed, [id number] Referrals: Onesimo Arceo MD [Primary Care Provider] - Forms: ED Department Discharge Additional Instructions: Evaluation in the emergency room this morning in regards to persistent bleeding from the left nose for the last day and a half. This is aggravated by being on Coumadin with your known INR of 3.2. Because of the left ventricular assist device you are maintained between 2.7 and 3.5. The Coumadin itself does not cause the nosebleed. Irritation of the nose lining bring in the blood vessels close to the surface causes bleeding. Blood vessels come closer to the surface in a way of relieving heat in the summer months and then dry out secondary to air conditioning. Today the bleeding was controlled with nasal clamp and then cauterization with silver nitrate to the left anterior nasal septum. Suggest use of Polysporin ointment to each side of the nasal septum every night at bedtime for the next week and then Monday night and Monday night for the next 2 to 3 weeks to prevent any further nosebleeds from occurring. Return to the ED if any further bleeding occurs. Sepsis Event Note (ED) - Evaluation Sepsis Screening Result: No Definite Risk
== END 2019-12-20 07:50 | disposition home or self-care (01) ==
LOC: JD.ED 06:23
DX: R04.0 Epistaxis (principal); N18.9 Chronic kidney disease, unspecified; Z87.891 Personal history of nicotine dependence; Z79.01 Long term (current) use of anticoagulants; Z79.82 Long term (current) use of aspirin; Z79.899 Other long term (current) drug therapy
CPT/HCPCS: 30901; 99283

== ENCOUNTER 2019-12-20 18:41 | Emergency (ER) | payer BC ==
[2019-12-20 19:07] VITALS: BP 98/85; PULSE 70
--- NOTE | 2019-12-20 19:26 | EDM.PDOC ---
ED HPI GENERAL MEDICAL PROBLEM - General Chief Complaint: General Stated Complaint: NOSE BLEED Time Seen by Provider: 12/20/19 19:01 Source of Information: Reports: Patient History Limitations: Reports: No Limitations - History of Present Illness INITIAL COMMENTS - FREE TEXT/NARRATIVE: This is a 54-year-old male. He was here earlier today for a left nasal passage bleed. It was cauterized at that time and he appeared to be doing okay. This evening he feels like he has a small drip and when he puts a tissue to his nose he gets some blood on it. Because of this he comes back to the ER for evaluation. He is not having any major bleed at this time. He does have a lot of old blood noted in that left nasal passage. There is no active bleeding noted. The patient has a left ventricular assist device and he is on Coumadin. His normal blood pressures are systolic in the 90s. His blood pressure is not elevated at this time. Any other acute symptoms. He did put some Vaseline in his nose earlier in hopes that it would keep the nose moist and stop any bleeding. - Related Data Allergies Allergy/AdvReac Type Severity Reaction Status Date / Time No Known Allergies Allergy Verified 12/20/19 19:07 Home Meds: Home Meds Folic Acid 1 mg PO DAILY 08/11/14 [History] sulfaSALAzine 1,000 mg PO BID 08/11/14 [History] Amiodarone [Cordarone] 200 mg PO DAILY 06/07/16 [History] Methotrexate Sodium/PF [Methotrexate 50 mg/2 ml Vial] 0.04 ml PO WEEKLY 06/07/16 [History] Aspirin [Ecotrin] 325 mg PO DAILY 01/15/17 [History] Iron,Carbonyl/Ascorbic Acid [Vitron-C Tablet] 1 tab PO DAILY 01/15/17 [History] Multivitamin [Multi-Day Vitamins] 1 tab PO DAILY 01/15/17 [History] Pantoprazole Sodium [Protonix] 40 mg PO DAILY 01/15/17 [History] Torsemide [Demadex] 20 mg PO DAILY 01/15/17 [History] Warfarin [Coumadin] 1 dose PO ASDIRECTED 01/15/17 [History] Doxycycline [Vibramycin] 100 mg PO BID #20 cap 11/12/18 [Rx] Past Medical History Cardiovascular History: Reports: Cardiomyopathy, Other (See Below) Other Cardiovascular History: 15-20% functioning heart, viral illness causing heart damage. Currently has a left ventricular assist device. Genitourinary History: Reports: Chronic Renal Insuffiency Musculoskeletal History: Reports: RA - Infectious Disease History Infectious Disease History: Reports: Chicken Pox, Measles - Past Surgical History Cardiovascular Surgical History: Reports: AICD, Other (See Below) Other Cardiovascular Surgeries/Procedures: LVAD Social & Family History - Tobacco Use Smoking Status *Q: Former Smoker Used Tobacco, but Quit: Yes Month/Year Tobacco Last Used: 12/2016 - Caffeine Use Caffeine Use: Reports: Soda Other Caffeine Use: soda occassionally - Recreational Drug Use Recreational Drug Use: No - Living Situation & Occupation Living situation: Reports: , with Spouse, with Family Occupation: Employed ED ROS GENERAL - Review of Systems Review Of Systems: See Below Constitutional: Denies: Fever, Chills HEENT: Reports: Nosebleed Respiratory: Denies: Shortness of Breath, Cough Cardiovascular: Reports: Other (Left ventricular assist device). Denies: Chest Pain Endocrine: Reports: Fatigue GI/Abdominal: Denies: Abdominal Pain, Diarrhea, Nausea, Vomiting : Reports: No Symptoms Musculoskeletal: Reports: No Symptoms Skin: Reports: No Symptoms Neurological: Reports: No Symptoms Psychiatric: Reports: No Symptoms ED EXAM, GENERAL - Physical Exam Exam: See Below Exam Limited By: No Limitations General Appearance: Alert, WD/WN, No Apparent Distress Eye Exam: Bilateral Eye: Normal Inspection Ears: Normal External Exam Nose: Other (Noted to be old blood in his left nasal passage but no active red bleeding. I can see where they cauterized it on the anterior septum and there does not appear to be any new bleeding presently. I was able to clean out most of the old blood and see into the posterior nasal passage.) Throat/Mouth: Other (Is no blood going in the posterior pharynx area that I can see presently.) Head: Normocephalic Neck: Supple Respiratory/Chest: No Respiratory Distress GI/Abdominal: Other (He denies any abdominal tenderness) Back Exam: Full Range of Motion Extremities: Normal Inspection, Normal Range of Motion Neurological: Alert, Oriented Psychiatric: Normal Affect, Normal Mood Skin Exam: Warm, Dry Course - Vital Signs Last Recorded V/S: Last Vital Signs Temp 97.9 F 12/20/19 19:04 Pulse 70 12/20/19 19:04 Resp 18 12/20/19 19:04 BP 98/85 12/20/19 19:04 Pulse Ox 96 12/20/19 19:04 - Orders/Labs/Meds Labs: Laboratory Tests 12/20/19 Range/Units 19:30 PT 32.2 H (9.7-12.0) SECONDS INR 3.15 - Re-Assessments/Exams Free Text/Narrative Re-Assessment/Exam: 12/20/19 20:49 The patient has been doing fine since he got here. There is no additional bleeding as he has been sitting here and we have been observing him. I did use a Q-tip and apply some Bactroban ointment and coated the inner side of his left nasal passage. There was no bleeding and he tolerated it well. 12/20/19 20:51 Spoke to the patient regarding his INR of 3.15 that is appropriate for his left ventricular assist device. Departure - Departure Time of Disposition: 20:50 Disposition: Home, Self-Care 01 Condition: Fair Clinical Impression: Epistaxis - Discharge Information *PRESCRIPTION DRUG MONITORING PROGRAM REVIEWED*: Not Applicable *COPY OF PRESCRIPTION DRUG MONITORING REPORT IN PATIENT ANGUS: Not Applicable Instructions: Nosebleed, [id number] Referrals: Onesimo Arceo MD [Primary Care Provider] - Forms: ED Department Discharge Additional Instructions: Do not rub or pick at your nose for the next 24 hours, in the morning very gently with a Q-tip coat the inner surface of your left nasal passage, if there is any additional marked bleeding return to the ER otherwise follow-up with your family doctor this week for reevaluation. Ankita's INR was 3.15 and appropriate. Sepsis Event Note (ED) - Evaluation Sepsis Screening Result: No Definite Risk - Focused Exam Vital Signs: Vital Signs Temp Pulse Resp BP Pulse Ox 12/20/19 19:04 97.9 F 70 18 98/85 96
== END 2019-12-20 20:55 | disposition home or self-care (01) ==
LOC: JD.ED 18:41
DX: R04.0 Epistaxis (principal); N18.9 Chronic kidney disease, unspecified; Z87.891 Personal history of nicotine dependence; Z79.82 Long term (current) use of aspirin; Z79.899 Other long term (current) drug therapy
CPT/HCPCS: 36415; 85610; 99283

== ENCOUNTER 2020-08-05 04:00 | Emergency (ER) | payer BC ==
[2020-08-05] MEDS ORDERED: Sodium Chloride 0.9% 10 ML Syringe FLUSH PRN (04:28)
--- NOTE | 2020-08-05 04:31 | EDM.PDOC ---
<Ramos Kim - Last Filed: 08/05/20 13:00> ED HPI GENERAL MEDICAL PROBLEM - General Chief Complaint: Flank Pain Stated Complaint: LEFT SIDE PAIN Time Seen by Provider: 08/05/20 04:15 - Related Data Allergies Allergy/AdvReac Type Severity Reaction Status Date / Time No Known Allergies Allergy Verified 08/05/20 04:13 Home Meds: Home Meds Folic Acid 1 mg PO DAILY 08/11/14 [History] sulfaSALAzine 1,000 mg PO BID 08/11/14 [History] Amiodarone [Cordarone] 200 mg PO DAILY 06/07/16 [History] Methotrexate Sodium/PF [Methotrexate 50 mg/2 ml Vial] 0.03 ml PO WEEKLY 06/07/16 [History] Aspirin [Ecotrin] 325 mg PO DAILY 01/15/17 [History] Multivitamin [Multi-Day Vitamins] 1 tab PO DAILY 01/15/17 [History] Pantoprazole Sodium [Protonix] 40 mg PO DAILY 01/15/17 [History] Torsemide [Demadex] 20 mg PO DAILY 01/15/17 [History] Ascorbic Acid [Vitamin C] 1,000 mg PO DAILY 08/05/20 [History] Cefdinir [Omnicef] 300 mg PO BID #16 cap 08/05/20 [Rx] Cholecalciferol (Vitamin D3) [Vitamin D3] 5,000 unit PO DAILY 08/05/20 [History] Metoprolol Succinate 25 mg PO DAILY 08/05/20 [History] Ondansetron [Zofran] 4 mg BUCCAL Q6H PRN #5 tab 08/05/20 [Rx] Warfarin [Coumadin] 4 mg PO ASDIRECTED 08/05/20 [History] Warfarin [Coumadin] 5 mg PO ASDIRECTED 08/05/20 [History] Course - Re-Assessments/Exams Free Text/Narrative Re-Assessment/Exam: 08/05/20 13:[address] Garland. The patient is still not feeling better. His IP on his LVAD was low at 1.8. It is normally at around 5.5. They wanted me to c ontact the LVAD team. I called them and they were not concerned about the IP being low. It is around 5.5 now. They said this will vary. They were also not concerned about his low BP but his MAP was above 70. The patient rested for awhile and felt better and wanted to go. He is going to take the antibiotics and we do have blood cultures pending. Departure - Departure Disposition: Home, Self-Care 01 Clinical Impression: Chills without fever, LUQ abdominal pain, Constipation by delayed colonic trans it - Discharge Information Prescriptions: Cefdinir [Omnicef] 300 mg PO BID #16 cap Ondansetron [Zofran] 4 mg BUCCAL Q6H PRN #5 tab PRN Reason: nausea or vomiting Instructions: Constipation, Adult, Abdominal Pain, Adult, [id number] Referrals: Onesimo Arceo MD [Primary Care Provider] - Forms: ED Department Discharge Additional Instructions: Evaluation in the emergency room this morning in regards to persistent left upper quadrant abdominal pain since 0200 hours this morning. No associated nausea or vomiting and pain essentially remained stable prior to coming to the ED. Due to having left ventricular assist device in place a full work-up was carried out due to reported chills. This included septic work-up including blood cultures x2. Initially you did not have a fever but at the time of discharge I felt that you were slightly warm to palpation. X-ray of the chest revealed lungs to be clear with no evidence of any pneumonia. The left ventricular assist device is in the appropriate position as it was in 2017 and the heart remains enlarged but no worse than it was in 2017. CT of the abdomen was performed to rule out a kidney stone in the left flank or upper abdomen to cause pain and none was found. There is increased stool throughout the colon particularly the right side of the colon and the transverse colon which lives across the upper abdomen. Suggest bowel cleanse with magnesium citrate or Citroma taking 6 ounces of this medication mixed with 6 ounces of juice of choice or Gatorade Powerade by mouth once. This will usually start to work in 1 to 2 hours and bowels will usually move 3 or 4 times sometimes ending in diarrhea. It usually causes very little cramping. Lab tests revealed a slightly elevated white count at 10.84 and the differential on the white count suggests an elevated neutrophil count at 80% with 2% bands cells which suggest a developing infection. At this point time the source of this infection is unclear as the urine is clear chest is clear. Recent dental manipulation a week ago could possibly related to infection developing now but should have developed a bit sooner. Suggest treatment with Omnicef 300 mg twice daily for the next 8 days to clear up infection and of the upper respiratory tree sinuses lungs urinary tract and most GI infection causes. You would need to return to the hospital if you develop persistent nausea or vomiting severe chills or rigors or temperature greater than 100.5 degrees. May still use Tylenol 650 mg every 6 hours necessary for fever relief. <GillEmmanuel Sybil - Last Filed: 08/05/20 19:10> ED HPI GENERAL MEDICAL PROBLEM - General Source of Information: Reports: Patient, Family (spouse) History Limitations: Reports: No Limitations - History of Present Illness INITIAL COMMENTS - FREE TEXT/NARRATIVE: 54-year-old male presents to the ED in the accompaniment of his . He states he woke from sleep to void about 0200 hrs. and appreciated left upper quadrant abdominal discomfort that persisted for well over an hour while he was lying in bed. He states there was perhaps some mild left flank discomfort as well. The pain never really increased in intensity but it never went away either. No associated burping or belching. Of note the patient has a left ventricular assist device in his left hemiabdomen for the last 3 years. He is maintained on Coumadin usually 4 mg 1 day alternating with 5 mg the next. They try and keep his INR between 2.5 and 3.5. He has not had any spontaneous bleeding. No history of kidney stones. States his bowels have been functioning fairly well. Did not identify any blood in his urine tonight. Initially did have some associated nausea but it seems to be somewhat better. He also reports he has some chills a couple of times this evening. Onset: Today, Sudden Onset Date: 08/05/20 Onset Time: 02:00 Duration: Hour(s):, Constant Location: Reports: Abdomen (Left upper abdominal discomfort radiating slightly towards the left flank.) Quality: Reports: Ache ( It is pretty well staying in the same place as it started at 0200 hrs.) Severity: Moderate Improves with: Reports: None Worsens with: Reports: None Context: Denies: Activity, Exercise, Lifting, Sick Contact, Trauma, Other Associated Symptoms: Reports: Malaise, Nausea/Vomiting (Neck chronic fatigue), Shortness of Breath. 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 To his knowledge is never gone off.), Cardiomyopathy, Heart Failure (Severe heart failure requiring left vent ricular assist device implanted at [facility] 3 years ago.), Other (See Below) Other Cardiovascular History: 15-20% functioning heart, viral illness causing heart damage. Currently has a left ventricular assist device. Genitourinary History: Reports: Chronic Renal Insuffiency Musculoskeletal History: Reports: Arthritis (He affecting his hands. He reports he has been on sulfasalazine for about 3 years as well.), RA - Infectious Disease History Infectious Disease History: Reports: Chicken Pox, Measles - Past Surgical History Cardiovascular Surgical History: Reports: AICD, Other (See Below) Other Cardiovascular Surgeries/Procedures: LVAD Social & Family History - Caffeine Use Caffeine Use: Reports: Soda Other Caffeine Use: soda occassionally - Living Situation & Occupation Living situation: Reports: , with Spouse, with Family Occupation: Employed ED ROS GENERAL - Review of Systems Review Of Systems: See Below Constitutional: Reports: Malaise, Weakness, Fatigue. Denies: Fever, Chills HEENT: Reports: No Symptoms Respiratory: Reports: Shortness of Breath. Denies: Wheezing, Pleuritic Chest Pain, Cough, Sputum, Hemoptysis Cardiovascular: Reports: Blood Pressure Problem (Pressure usually runs low 95- 100), Dyspnea on Exertion (Mild both lower extremities), Edema, Orthopnea. Denies: Chest Pain, Claudication, Lightheadedness (Air.) Endocrine: Reports: Fatigue GI/Abdominal: Denies: Abdominal Pain, Constipation, Hematemesis, Hematochezia, Melena : Reports: Frequency. Denies: Dysuria, Incontinence, Urgency Musculoskeletal: Reports: Neck Pain, Shoulder Pain, Joint Pain (Is and hips at times.) Skin: Reports: Bruising (As he is on Coumadin.) Neurological: Reports: No Symptoms, Difficulty Walking. Denies: Confusion, Dizziness, Headache, Numbness, Syncope, Tingling, Weakness Psychiatric: Reports: No Symptoms (Slowly.) Hematologic/Lymphatic: Reports: No Symptoms Immunologic: Reports: No Symptoms ED EXAM, GI/ABD - Physical Exam Exam: See Below Exam Limited By: No Limitations General Appearance: Alert, WD/WN, No Apparent Distress, Other (He states pain in his left upper abdomen is much better than it was but he still rates it as 7 out of 10. Temperature is 36.4 and he does not feel warm to palpation. Heart rate is 86 and sinus with a respiratory of 17 and sats of 97% on room air BP 110/90 and has come down to 97/80.) Eyes: Right: Normal Appearance (Scleral icterus or blepharal pallor. He does have a right sided lateral inferior) Throat/Mouth: Normal Inspection, Normal Lips, Normal Oropharynx Head: Atraumatic, Normocephalic, Other Neck: Normal Inspection (No outward signs of any head or facial trauma.), Suppl e, Non-Tender, Full Range of Motion. No: Lymphadenopathy (L), Lymphadenopathy (R) Respiratory/Chest: No Respiratory Distress, Lungs Clear, Normal Breath Sounds, No Accessory Muscle Use Cardiovascular: No JVD, Other (She has a left ventricular assist device which just gives a whirring sensation in his abdomen and chest. He has no heartbeat.). No: Normal Peripheral Pulses GI/Abdominal Exam: No Organomegaly, Abnormal Bowel Sounds, Other (Bowel sounds are few and far between. Ventricular assist device is in his left hemiabdomen. The whirring noise from the left ventricular assist device makes it very difficult to hear any bowel sounds.). No: Guarding, Rigid, Rebound Back Exam: Normal Inspection, Full Range of Motion. No: CVA Tenderness (L), CVA Tenderness (R) Extremities: Normal Inspection, Normal Range of Motion, Non-Tender, Pedal Edema (Pedal edema at the ankles.) Neurological: Alert, Oriented, CN II-XII Intact, Normal Cognition Psychiatric: Normal Affect, Normal Mood Skin Exam: Warm, Dry, Intact, Normal Color, No Rash Course - Vital Signs Last Recorded V/S: Last Vital Signs Temp 36.9 C 08/05/20 06:45 Pulse 86 08/05/20 07:11 Resp 16 08/05/20 07:11 BP 79/66 L 08/05/20 07:11 Pulse Ox 93 L 08/05/20 07:11 - Orders/Labs/Meds Orders: Active Orders 24 hr Category Date Time Status CULTURE BLOOD [BC] Stat Lab 08/05/20 04:49 Received CULTURE BLOOD [BC] Stat Lab 08/05/20 05:08 Received Blood Culture x2 Reflex Set [OM.PC] Stat Oth 08/05/20 04:26 Ordered Peripheral IV Insertion Adult [OM.PC] Stat Oth 08/05/20 04:28 Ordered Labs: Laboratory Tests 08/05/20 08/05/20 08/05/20 Range/Units 04:49 05:13 05:13 WBC 10.84 H (4.23-9.07) K/mm3 RBC 4.59 L (4.63-6.08) M/mm3 Hgb 15.2 (13.7-17.5) gm/dl Hct 44.9 (40.1-51.0) % MCV 97.8 H (79.0-92.2) fl MCH 33.1 H (25.7-32.2) pg MCHC 33.9 (32.2-35.5) g/dl RDW Std Deviation 49.3 H (35.1-43.9) fL Plt Count 160 L (163-337) K/mm3 MPV 12.1 (9.4-12.3) fl Neutrophils % (Manual) 81 H (40-60) % Band Neutrophils % 2 (0-10) % Lymphocytes % (Manual) 4 L (20-40) % Atypical Lymphs % 0 % Monocytes % (Manual) 12 H (2-10) % Eosinophils % (Manual) 1 (0.8-7.0) % Basophils % (Manual) 0 L (0.2-1.2) Platelet Estimate Adequate RBC Morph Comment Normal PT 28.8 H (9.7-12.0) SECONDS INR 2.75 APTT 41.6 H (21.7-31.4) SECONDS Sodium (136-145) mEq/L Potassium (3.5-5.1) mEq/L Chloride (98-107) mEq/L Carbon Dioxide (21-32) mEq/L Anion Gap (5-15) BUN (7-18) mg/dL Creatinine (0.7-1.3) mg/dL Est Cr Clr Drug Dosing mL/min Estimated GFR (MDRD) (>60) mL/min BUN/Creatinine Ratio (14-18) Glucose (74-106) mg/dL Calcium (8.5-10.1) mg/dL Magnesium (1.8-2.4) mg/dl Total Bilirubin (0.2-1.0) mg/dL AST (15-37) U/L ALT (16-63) U/L Alkaline Phosphatase (46-116) U/L C-Reactive Protein (<1.0) mg/dL NT-Pro-B Natriuret Pep 1108 H (0-125) pg/mL Total Protein (6.4-8.2) g/dl Albumin (3.4-5.0) g/dl Globulin gm/dL Albumin/Globulin Ratio (1-2) Urine Color (Yellow) Urine Appearance (Clear) Urine pH (5.0-8.0) Ur Specific [place] (1.005-1.030) Urine Protein (Negative) Urine Glucose (UA) (Negative) Urine Ketones (Negative) Urine Occult Blood (Negative) Urine Nitrite (Negative) Urine Bilirubin (Negative) Urine Urobilinogen (0.2-1.0) Ur Leukocyte Esterase (Negative) Urine RBC (0-5) /hpf Urine WBC (0-5) /hpf Ur Squamous Epith Cells (0-5) /hpf Urine Bacteria (FEW) /hpf Urine Mucus (FEW) /hpf 08/05/20 08/05/20 Range/Units 05:13 05:30 WBC (4.23-9.07) K/mm3 RBC (4.63-6.08) M/mm3 Hgb (13.7-17.5) gm/dl Hct (40.1-51.0) % MCV (79.0-92.2) fl MCH (25.7-32.2) pg MCHC (32.2-35.5) g/dl RDW Std Deviation (35.1-43.9) fL Plt Count (163-337) K/mm3 MPV (9.4-12.3) fl Neutrophils % (Manual) (40-60) % Band Neutrophils % (0-10) % Lymphocytes % (Manual) (20-40) % Atypical Lymphs % % Monocytes % (Manual) (2-10) % Eosinophils % (Manual) (0.8-7.0) % Basophils % (Manual) (0.2-1.2) Platelet Estimate RBC Morph Comment PT (9.7-12.0) SECONDS INR APTT (21.7-31.4) SECONDS Sodium 143 (136-145) mEq/L Potassium 3.6 (3.5-5.1) mEq/L Chloride 102 (98-107) mEq/L Carbon Dioxide 30 (21-32) mEq/L Anion Gap 14.6 (5-15) BUN 32 H (7-18) mg/dL Creatinine 2.1 H (0.7-1.3) mg/dL Est Cr Clr Drug Dosing 42.33 mL/min Estimated GFR (MDRD) 33 (>60) mL/min BUN/Creatinine Ratio 15.2 (14-18) Glucose 101 (74-106) mg/dL Calcium 9.0 (8.5-10.1) mg/dL Magnesium 2.1 (1.8-2.4) mg/dl Total Bilirubin 0.6 (0.2-1.0) mg/dL AST 29 (15-37) U/L ALT 29 (16-63) U/L Alkaline Phosphatase 70 (46-116) U/L C-Reactive Protein 1.6 H* (<1.0) mg/dL NT-Pro-B Natriuret Pep (0-125) pg/mL Total Protein 7.7 (6.4-8.2) g/dl Albumin 4.2 (3.4-5.0) g/dl Globulin 3.5 gm/dL Albumin/Globulin Ratio 1.2 (1-2) Urine Color Yellow (Yellow) Urine Appearance Clear (Clear) Urine pH 6.0 (5.0-8.0) Ur Specific [place] 1.020 (1.005-1.030) Urine Protein Negative (Negative) Urine Glucose (UA) Negative (Negative) Urine Ketones Negative (Negative) Urine Occult Blood 2+ H (Negative) Urine Nitrite Negative (Negative) Urine Bilirubin Negative (Negative) Urine Urobilinogen 0.2 (0.2-1.0) Ur Leukocyte Esterase Negative (Negative) Urine RBC 0-5 (0-5) /hpf Urine WBC 0-5 (0-5) /hpf Ur Squamous Epith Cells 0-5 (0-5) /hpf Urine Bacteria Rare (FEW) /hpf Urine Mucus Few (FEW) /hpf Meds: Medications Discontinued Medications Generic Name Dose Route Start Last Admin Trade Name Makayla PRN Reason Stop Dose Admin Cefdinir 300 mg 08/05/20 07:10 08/05/20 07:55 Omnicef PO 08/05/20 07:11 300 mg ONETIME ONE Administration Magnesium Citrate 180 ml 08/05/20 06:44 08/05/20 06:59 Citrate Of Magnesia PO 08/05/20 06:45 180 ml ONETIME ONE Administration Ondansetron HCl 4 mg 08/05/20 06:49 08/05/20 06:58 Zofran Odt PO 08/05/20 06:50 4 mg ONETIME ONE Administration Sodium Chloride 10 ml 08/05/20 04:28 08/05/20 04:51 Saline Flush FLUSH 10 ml ASDIRECTED PRN Administration Keep Vein Open - Radiology Interpretation Free Text/Narrative:: 54-year-old male presents to the ED with left upper abdominal pain that started around 0200 hrs. this morning after he got up to void. States it does seem to radiate slightly into the left flank area. He states he laid back in bed but could not fall asleep due to the persistent left upper quadrant abdominal discomfort. This is something new to him. He states the pain was as high as a 7 out of 10 he still rates it as a 6 out of 10 but does not want any pain medicine at this time. He states he did have some nausea upon leaving home but it is better now. Also reports having feeling chilled a couple of times this last evening. He clinically has no fever at this time. 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 Apparently he is still listed on the transplant list through [facility]. He was hoping that his heart would gradually get stronger and recover from the cardiomyopathy and apparently it has improved but it is rule out relatively slow going. He is chronically anticoagulant with Coumadin usually 4 mg 1 day alternating with 5 mg the next trying to maintain an INR of 2.5-3.5 due to left ventricular assist device. Plan he will have a chest x-ray portably. He will have CT of the abdomen pelvis done without any contrast since his kidneys apparently are not in the best of shape. Bowel function has been normal. Routine labs will be performed including a blood culture x2. - Re-Assessments/Exams Free Text/Narrative Re-Assessment/Exam: 08/05/20 05:16 White count is mildly elevated at 10.84. Differential is pending. Hemoglobin is 15.2 with hematocrit of 44.9. MCV is mildly elevated at 97.8. Platelet count is low normal at 160,000 08/05/2020: CT scan of the abdomen pelvis performed without oral or IV contrast. Left ventricular assist device to of course appreciated left upper hemiabdomen. Liver shows no mass. Gallbladder does contain several small gallstones. Pancreas is normal with no ductal dilatation. Spleen is normal with no splenomegaly. Adrenal glands are normal with no mass. Kidneys and ureters show bilateral renal cysts some of which are hyperdense the largest involves the left kidney measuring 3.1 cm. No follow-up is recommended. There is no evidence for renal or ureteral calculi. Stomach and bowel are unremarkable with no obstruction no mucosal thickening. Appendix no evidence of appendicitis. Is increased stool throughout the right hemicolon and transverse colon but with mild constipation. Intraperitoneal space is unremarkable with no free air no significant fluid collections. Vasculature is unremarkable with no abdominal aortic aneurysm. Lymph nodes unremarkable with no enlarged lymph nodes urinary bladder unremarkable as visualized. Bones and joints unremarkable with no acute fractures. Soft tissues are unremarkable. 08/05/20 05:59 PT is 28.8 with an INR of 2.75. PTT is 41.6. Sodium is 143 with a potassium of 3.6. Chloride is 102 with a bicarb of 30. Anion gap is 14.6. BUN is 32 with a creatinine of 2.1. GFR is 33 i.e. stage IIIb renal insufficiency. Glucose is 101 with a calcium 9.0 magnesium is 2.1. Liver function normal C-reactive protein 1.6 total protein 7.7 with albumin fraction of 4.2. The urinalysis shows 2+ occult blood but no signs of an infection and no red cells reported on the micro. The only thing that is pending at this point time is the differential on the white count. 08/05/20 06:17 Differential is still pending. BNP is 1108. 08/05/20 06:38 Differential on the white count reveals 81% neutrophils and 2% bands cells. This is concerning for developing infection of unclear etiology. Have some dental work done about a week ago and was on antibiotics for 1 hour prior to the procedure. I can find no other obvious source for an infection. I am going to therefore place him on Augmentin 8 7 5/125 mg twice daily for the next 8 days to clear up infection that would involve the upper respiratory tract the chest the urine etc. He does feel slightly warmer to palpation at this time. He will return if he has any significant rigors, chills nausea vomiting or temperature greater than 100.5 degrees. Blood cultures x2 were done today even in spite of not having a fever at the time. I will also send him home on Citroma to take 6 ounces by mouth this morning with 6 ounces of juice of choice to provide bowel cleanse. 08/05/20 07:00 as the patient was getting up to go home he had to go to the washroom. When he stood up to walk to the washroom he felt lightheaded dizzy and very nauseated. He broke out in a cold sweat and felt lightheaded and dizzy. BP was 79 systolic. He is unable to compensate for increased vagal tone due to the LVAC.Case discussed with Dr kim as it is change of shift and he will keep an eye on him. He therefore had to sit in the wheelchair for prolonged period of time. He never did vomit. On reexamination in the room his blood pressure was 79/60. He states this can occur sometimes when he is not feeling well his L back would not generate a high blood pressure. Normal blood pressure for him is usually 90-95. At this time nothing is as far as his treatment plan will be changed. He will be given Zofran 4 mg sublingual at this time and 15 minutes later for now can have his first dose of Augmentin 8 seven 5/125 mg per ora. He will of course return if he develops any fever, chills, rigors, nausea vomiting or temperature greater than 100.5 degrees. Departure - Departure Time of Disposition: 09:30 Condition: Fair - Discharge Information *PRESCRIPTION DRUG MONITORING PROGRAM REVIEWED*: Not Applicable *COPY OF PRESCRIPTION DRUG MONITORING REPORT IN PATIENT ANGUS: Not Applicable Sepsis Event Note (ED) - Evaluation Sepsis Screening Result: No Definite Risk - Focused Exam Vital Signs: Vital Signs Pulse Resp BP Pulse Ox 08/05/20 07:11 86 16 79/66 L 93 L - My Orders Last 24 Hours: My Active Orders 08/05/20 04:26 Blood Culture x2 Reflex Set [OM.PC] Stat 08/05/20 04:28 Peripheral IV Insertion Adult [OM.PC] Stat 08/05/20 04:49 CULTURE BLOOD [BC] Stat 08/05/20 05:08 CULTURE BLOOD [BC] Stat - Assessment/Plan Last 24 Hours: My Active Orders 08/05/20 04:26 Blood Culture x2 Reflex Set [OM.PC] Stat 08/05/20 04:28 Peripheral IV Insertion Adult [OM.PC] Stat 08/05/20 04:49 CULTURE BLOOD [BC] Stat 08/05/20 05:08 CULTURE BLOOD [BC] Stat
[2020-08-05] MEDS ORDERED: Magnesium Citrate Solution 296 ML Bottle PO ONE (06:44)
[2020-08-05] MEDS ORDERED: Ondansetron 4 MG Tab.DIS PO ONE (06:49)
[2020-08-05] MEDS ORDERED: Cefdinir 300 MG Cap PO ONE (07:10)
--- NOTE | 2020-08-05 07:10 | CR ---
Chest: Portable view of the chest was obtained. Comparison: Prior chest x-ray of 01/15/17. Heart is enlarged. Upper mediastinum is normal. Prior sternotomy is seen. AICD is noted. Prior cardiac assist device is stable in appearance from prior exam. Slight parenchymal scarring is seen within the left lung base. Lungs otherwise are clear. Bony structures are grossly intact. Impression: 1. Stable cardiomegaly with stable cardiac assist device and AICD. 2. Slight scarring within the left lung base. 3. Nothing acute is appreciated. Diagnostic code #2
[2020-08-05 07:13] VITALS: BP 79/66; PULSE 86
--- NOTE | 2020-08-05 07:26 | CT ---
CT abdomen and pelvis Technique: Multiple axial sections were obtained from above the dome of the diaphragm inferiorly through the pubic symphysis. Intravenous and oral contrast were not utilized. Reconstructed coronal and sagittal images were obtained. Comparison: No prior abdominal imaging is available. Findings: Heart assist device is partially seen. There is slight increased density within both lung bases, worse on the left side which most likely represents mild areas of scarring. Heart is enlarged. Noncontrast appearance of the liver shows no focal abnormality. Small calcified gallstones are seen within the gallbladder. Spleen appears normal. Adrenal glands show no nodule. Pancreas shows no abnormality. Small cysts are seen within both kidneys. Several cysts are slightly increased in density which are most likely due to small hemorrhagic cysts. These appear mostly exophytic from both kidneys. No hydronephrosis or abnormal calcifications are seen. No ureteral dilatation or ureteral stone is appreciated. Abdominal aorta shows no aneurysm. No retroperitoneal adenopathy or mesenteric abnormalities are seen. No pelvic adenopathy or mass is seen. Small fat-containing bilateral inguinal hernias are noted. No free fluid is seen. Small umbilical hernia is noted containing fat. Appendix is seen and normal in size. Bone window settings were reviewed which show mild scattered degenerative change within the spine. No acute osseous abnormality is appreciated. Impression: 1. Small calcified gallstones within the gallbladder. 2. Other findings as noted above which appear to be chronic. 3. Nothing acute is appreciated on noncontrast CT study of the abdomen and pelvis. Diagnostic code #2 I agree with preliminary report from [facility], finalized on 08/05/20, 6:39 AM [employer]
== END 2020-08-05 09:35 | disposition home or self-care (01) ==
LOC: JD.ED 04:00
DX: K59.01 Slow transit constipation (principal); R68.83 Chills (without fever); M19.90 Unspecified osteoarthritis, unspecified site; N18.9 Chronic kidney disease, unspecified; I50.9 Heart failure, unspecified; Z79.82 Long term (current) use of aspirin; Z79.899 Other long term (current) drug therapy
CPT/HCPCS: 36415; 71045; 74176; 80053; 81001; 83735; 83880; 85007; 85027; 85610; 85730; 86140; 87040; 99284; A9270

== ENCOUNTER 2022-05-15 13:07 | Emergency (ER) | payer BC ==
[2022-05-15 14:16] VITALS: BP 108/82; PULSE 67
[2022-05-15] MEDS ORDERED: Sodium Chloride 0.9% 10 ML Syringe FLUSH PRN (14:21)
== END 2022-05-15 16:19 | disposition home or self-care (01) ==
LOC: JD.ED 13:07
DX: R19.7 Diarrhea, unspecified (principal); N18.9 Chronic kidney disease, unspecified; Z95.810 Presence of automatic (implantable) cardiac defibrillator; Z79.82 Long term (current) use of aspirin; Z79.899 Other long term (current) drug therapy; Z79.01 Long term (current) use of anticoagulants
CPT/HCPCS: 36415; 80053; 83630; 83735; 85025; 87493; 99284

== ENCOUNTER 2024-01-28 18:47 | Emergency (ER) | payer BC ==
[2024-01-28] MEDS ORDERED: Sodium Chloride 0.9% 10 ML Syringe FLUSH PRN (19:21)
[2024-01-28 20:10] LABS: BASOPHILS ABSOLUTE AUTO 0.1 K/mm3 (0.0-0.2); BASOPHILS PERCENT AUTO 0.8 % (0.0-1.0); EOSINOPHILS PERCENT AUTO 0.5 % (0.0-6.0); HEMATOCRIT 46.5 % (42.0-52.0); HEMOGLOBIN 15.6 gm/dl (14.0-18.0); IMMATURE GRAN ABSOLUTE AUTO 0.02 K/mm3 (0.00-0.05); IMMATURE GRAN PERCENT AUTO 0.3 % (0.0-0.4); LYMPHOCYTES ABSOLUTE AUTO 0.8 K/mm3 (1.0-4.8); LYMPHOCYTES PERCENT AUTO 13.5 % (24.0-44.0); MEAN CORPUSCULAR HEMOGLOBIN 33.1 pg (28.0-32.0); MEAN CORPUSCULAR HGB CONC 33.5 g/dl (32.0-36.0); MEAN CORPUSCULAR VOLUME 98.7 fl (83.0-99.0); MEAN PLATELET VOLUME 12.3 fl (9.4-12.4); MONOCYTES ABSOLUTE AUTO 0.8 K/mm3 (0.0-0.8); MONOCYTES PERCENT AUTO 13.1 % (0.0-8.0); NEUTROPHILS ABSOLUTE AUTO 4.3 K/mm3 (1.8-7.7); NEUTROPHILS PERCENT AUTO 71.8 % (41.0-71.0); PLATELET COUNT,PLT 120 K/mm3 (150-400); RED BLOOD CELL COUNT 4.71 M/mm3 (4.52-5.90); WHITE BLOOD CELL COUNT,WBC 6.01 K/mm3 (3.9-11.3)
[2024-01-28 20:33] LABS: A/G RATIO 1.2 (1-2); ANION GAP 10.6 (5-15); BILIRUBIN TOTAL 1.4 mg/dL (0.2-1.0); BUN/CREATININE RATIO 11.7 (14-18); CALCIUM 9.3 mg/dL (8.5-10.1); CREATININE 2.3 mg/dL (0.7-1.3); EST CRCL DRUG DOSING (CG) 36.83 mL/min; POTASSIUM,K 4.6 mEq/L (3.5-5.1); PROTEIN TOTAL,TP 7.4 g/dl (6.4-8.2)
[2024-01-28 21:05] LABS: INR 2.89; PROTHROMBIN TIME 28.6 SECONDS (9.7-12.0)
[2024-01-28 21:18] VITALS: BP 99/77; PULSE 79
== END 2024-01-28 21:17 | disposition home or self-care (01) ==
LOC: JD.ED 18:47
DX: T82.897A Other specified complication of cardiac prosthetic devices, implants and grafts, initial encounter (principal); R79.89 Other specified abnormal findings of blood chemistry; R94.4 Abnormal results of kidney function studies; I50.9 Heart failure, unspecified; Z79.899 Other long term (current) drug therapy; Z79.01 Long term (current) use of anticoagulants
CPT/HCPCS: 36415; 80053; 83735; 84484; 85025; 85610; 93005; 93010; 99282; 99284

== ENCOUNTER 2024-03-11 12:56 | Emergency (ER) | payer BC ==
[2024-03-11 13:19] VITALS: PULSE 55
[2024-03-11 14:02] LABS: BASOPHILS PERCENT AUTO 0.7 % (0.0-1.0); EOSINOPHILS ABSOLUTE AUTO 0.1 K/mm3 (0.0-0.4); HEMATOCRIT 45.8 % (42.0-52.0); HEMOGLOBIN 15.6 gm/dl (14.0-18.0); IMMATURE GRAN ABSOLUTE AUTO 0.03 K/mm3 (0.00-0.05); IMMATURE GRAN PERCENT AUTO 0.5 % (0.0-0.4); LYMPHOCYTES ABSOLUTE AUTO 0.9 K/mm3 (1.0-4.8); MEAN CORPUSCULAR HEMOGLOBIN 32.5 pg (28.0-32.0); MEAN CORPUSCULAR HGB CONC 34.1 g/dl (32.0-36.0); MEAN PLATELET VOLUME 12.9 fl (9.4-12.4); MONOCYTES ABSOLUTE AUTO 0.8 K/mm3 (0.0-0.8); NEUTROPHILS PERCENT AUTO 67.8 % (41.0-71.0); PLATELET COUNT,PLT 104 K/mm3 (150-400); WHITE BLOOD CELL COUNT,WBC 5.94 K/mm3 (3.9-11.3)
[2024-03-11 14:04] LABS: MEAN CORPUSCULAR VOLUME 95.4 fl (83.0-99.0)
[2024-03-11] MEDS ORDERED: 50% Dextrose in Water 50 ML SDV IV STA (14:28)
[2024-03-11] MEDS: Albuterol 0.083% 2.5 MG/3 ML Neb Soln NEB SCH (14:30)
[2024-03-11 14:42] LABS: LACTIC ACID 1.2 mmol/L (0.4-2.0)
[2024-03-11] MEDS: Calcium Gluconate 10% 1 GM/10 ML SDV IVPUSH ONE (14:46)
[2024-03-11 14:49] LABS: A/G RATIO 1.1 (1-2); BILIRUBIN TOTAL 0.9 mg/dL (0.2-1.0); BUN/CREATININE RATIO 16.8 (14-18); CALCIUM 9.6 mg/dL (8.5-10.1); CREATININE 1.9 mg/dL (0.7-1.3); EST CRCL DRUG DOSING (CG) 44.59 mL/min; MAGNESIUM 1.9 mg/dL (1.8-2.4); PROTEIN TOTAL,TP 7.5 g/dl (6.4-8.2)
[2024-03-11] MEDS: 50% Dextrose in Water 50 ML Syringe IV STA (14:57)
[2024-03-11] MEDS: Insulin Regular, Human 100 Units/ML 10 ML Vial SUBCUT ONE (15:01)
[2024-03-11] MEDS: Sodium Bicarbonate 150 MEQ in Dextrose 5% in Water 1,000 ML IV ONE (15:05)
[2024-03-11 17:22] LABS: ANION GAP 11.7 (5-15); BUN/CREATININE RATIO 18.8 (14-18); CALCIUM 9.8 mg/dL (8.5-10.1); CREATININE 1.7 mg/dL (0.7-1.3); EST CRCL DRUG DOSING (CG) 49.83 mL/min; POTASSIUM,K 4.7 mEq/L (3.5-5.1)
[2024-03-11 19:47] VITALS: BP 109/86
== END 2024-03-11 17:49 | disposition home or self-care (01) ==
LOC: JD.ED 12:56
DX: E87.5 Hyperkalemia (principal); N18.32 Chronic kidney disease, stage 3b; Z95.811 Presence of heart assist device; Z79.01 Long term (current) use of anticoagulants; Z79.899 Other long term (current) drug therapy; Z79.82 Long term (current) use of aspirin
CPT/HCPCS: 36415; 80048; 80053; 83605; 83735; 85025; 93005; 94640; 96365; 96375; 99285; J0612; J1815; J7060; 93010; 99284; J3490; J7620-GY

== ENCOUNTER 2025-02-19 11:06 | Emergency (ER) | payer BC ==
[2025-02-19] MEDS ORDERED: Sodium Chloride 0.9% 10 ML Syringe FLUSH PRN (11:18)
[2025-02-19 12:03] LABS: BASOPHILS ABSOLUTE AUTO 0.0 K/mm3 (0.0-0.2); BASOPHILS PERCENT AUTO 0.5 % (0.0-1.0); EOSINOPHILS ABSOLUTE AUTO 0.1 K/mm3 (0.0-0.4); EOSINOPHILS PERCENT AUTO 1.5 % (0.0-6.0); IMMATURE GRAN ABSOLUTE AUTO 0.02 K/mm3 (0.00-0.05); IMMATURE GRAN PERCENT AUTO 0.3 % (0.0-0.4); LYMPHOCYTES ABSOLUTE AUTO 0.7 K/mm3 (1.0-4.8); LYMPHOCYTES PERCENT AUTO 12.4 % (24.0-44.0); MEAN PLATELET VOLUME 12.6 fl (9.4-12.4); MONOCYTES ABSOLUTE AUTO 0.8 K/mm3 (0.0-0.8); MONOCYTES PERCENT AUTO 14.1 % (0.0-8.0); NEUTROPHILS ABSOLUTE AUTO 4.2 K/mm3 (1.8-7.7); NEUTROPHILS PERCENT AUTO 71.2 % (41.0-71.0); NRBC ABSOLUTE 0.00 (0.00-0.02); NRBC PERCENT 0.0 % (0.0-0.2); PLATELET COUNT,PLT 103 K/mm3 (150-400); RED BLOOD CELL COUNT 4.25 M/mm3 (4.52-5.90); WHITE BLOOD CELL COUNT,WBC 5.96 K/mm3 (3.9-11.3)
[2025-02-19 12:27] LABS: A/G RATIO 1.2 (1-2); ALANINE AMINOTRANSFERASE,ALT 33.0 U/L (16-63); ASPARTATE AMNIOTRANSFERASE,AST 30.0 U/L (15-37); BILIRUBIN TOTAL 0.6 mg/dL (0.2-1.0); BLOOD UREA NITROGEN,BUN 26.0 mg/dL (7-18); CARBON DIOXIDE,CO2 30.0 mEq/L (21-32); CHLORIDE,CL 107.0 mEq/L (98-107); CREATININE 1.6 mg/dL (0.7-1.3); EST CRCL DRUG DOSING (CG) 52.29 mL/min; ESTIMATED GFR 49.0 mL/min (>60); GLUCOSE RANDOM 89.0 mg/dL (70-99); POTASSIUM,K 4.4 mEq/L (3.5-5.1); PROTEIN TOTAL,TP 6.7 g/dl (6.4-8.2); SODIUM,NA 142.0 mEq/L (136-145); TROPONIN I HIGH SENSITIVITY 61.0 pg/mL (<=76)
[2025-02-19 19:49] VITALS: BP 121/92; PULSE 50
== END 2025-02-19 17:00 | disposition home or self-care (01) ==
LOC: JD.ED 11:06
DX: T82.198A Other mechanical complication of other cardiac electronic device, initial encounter (principal); I13.0 Hypertensive heart and chronic kidney disease with heart failure and stage 1 through stage 4 chronic kidney disease, or unspecified chronic kidney disease; I50.9 Heart failure, unspecified; N18.9 Chronic kidney disease, unspecified; Z79.899 Other long term (current) drug therapy; Z79.82 Long term (current) use of aspirin; Z79.02 Long term (current) use of antithrombotics/antiplatelets; Z79.01 Long term (current) use of anticoagulants
CPT/HCPCS: 36415; 71045; 71045-26; 80053; 83880; 84484; 85025; 93005; 99284